=== PATIENT | female | born 2000 | race African-American/Black ===

== ENCOUNTER 2022-04-23 20:40 | Emergency (ER) | payer MEDICAID ==
[~2022-04-23] VITALS: Ht 167.6 cm; Wt 113.4 kg
[2022-04-23 21:37] VITALS: BP 123/73
[2022-04-23 22:53] LABS: Eosinophils # (auto) 0.1 10 ^3/uL (0-0.8); Hemoglobin 9.9 g/dL (12.2-16.2); Lymphocytes # (auto) 2.1 10 ^3/uL (0.4-5.4); Lymphocytes % (auto) 18.4 % (10.0-50.0); Mean Corpuscular Hemoglobin 22.3 pg (28.0-32.0); Monocytes # (auto) 0.6 10 ^3/uL (0-1.3); Neutrophils # (auto) 8.5 10 ^3/uL (1.6-8.6); Nucleated Red Blood Cells % 0.1 %; Red Blood Cells 4.45 10^6/uL (4.0-5.20); Red Cell Distribution Width 14.7 % (11.8-14.3)
[2022-04-23 22:55] LABS: Basophils # (auto) 0 10 ^3/uL (0-0.2); Basophils % (auto) 0.4 % (0.0-2.0); Eosinophils % (auto) 0.5 % (0.0-7.0); Hematocrit 32.4 % (36.0-46.0); Mean Corpuscular Hgb Conc. 30.6 g/dL (32.0-36.0); Mean Corpuscular Volume 72.9 fL (80.0-100.0); Monocytes % (auto) 5.7 % (0.0-12.0); White Blood Cell 11.4 10^3/uL (4.4-10.8)
[2022-04-23 23:08] LABS: INR 0.97 (0.9-1.15); Partial Thromboplastin Time 26.6 sec (24.6-33.4)
[2022-04-23 23:11] LABS: Albumin 3.7 g/dL (3.4-5.0); Calcium 8.8 mg/dL (8.5-10.1); Potassium 4.1 mmol/L (3.5-5.1)
[2022-04-23 23:13] LABS: BUN/Creatinine Ratio 25.8
[2022-04-23 23:16] LABS: Bilirubin, Total 0.3 mg/dL (0.2-1.0); Total Protein 7.3 g/dL (6.4-8.2)
[2022-04-24] MEDS ORDERED: cefTRIAXone SOD 1,000 MG VL IM ONE (02:15)
[2022-04-24] MEDS ORDERED: cefTRIAXone SOD 1,000 MG VL ONE (04:14)
== END 2022-04-24 04:15 | disposition home or self-care (01) ==
LOC: ER 20:40
DX: O03.4 Incomplete spontaneous abortion without complication (principal); R10.2 Pelvic and perineal pain; Z3A.01 Less than 8 weeks gestation of pregnancy
CPT/HCPCS: 36415; 76801; 76817; 80053; 84702; 85025; 85610; 85730; 86850; 86900; 86901; J0696